=== PATIENT | female | born 1950 | race Caucasian/White ===

== ENCOUNTER → 2018-09-26 | Outpatient (CLI) | payer MEDICARE, OTHER ==
[~2018-09-26] MED LIST: AMIT10 PO; AMLO5 PO; ASPI81CH PO; ATEN50 PO; CLIN300 PO; DONE5 PO; ESTR2 PO; GABA100 PO; HYDCHL25 PO; MORP15ER PO; Norco 10-325 T1 EACH PO; Omeprazole20 M1 PO; TIZANIDINE HCL4 MG PO
[2018-09-26 15:43] LABS: Adenovirus F 40/41 Not Detected (NOT DETECT); Astrovirus Not Detected (NOT DETECT); Campylobacter Sp Not Detected (NOT DETECT); Cryptosporidium Not Detected (NOT DETECT); Cyclospora Cayetanensis Not Detected (NOT DETECT); E. Coli O157 Not Detected (NOT DETECT); Entamoeba Histolytica Not Detected (NOT DETECT); Enteroaggregative E. coli-EAEC Not Detected (NOT DETECT); Enteropathogenic E. coli-EPEC Not Detected (NOT DETECT); Enterotoxigenic E. coli-ETEC Not Detected (NOT DETECT); Giardia Lamblia Not Detected (NOT DETECT); Norovirus GI/GII Not Detected (NOT DETECT); Plesiomonas Shigelloides Not Detected (NOT DETECT); Rotavirus A Not Detected (NOT DETECT); Salmonella Sp Not Detected (NOT DETECT); Sapovirus Not Detected (NOT DETECT); Shiga Toxin-prod E. coli-STEC Not Detected (NOT DETECT); Shigella/Enteroin E. coli-EIEC Not Detected (NOT DETECT); Vibrio Cholerae Not Detected (NOT DETECT); Vibrio Sp Not Detected (NOT DETECT); Yersinia Enterocolitica Not Detected (NOT DETECT)
== END | disposition home or self-care (01) ==
LOC: LAB 15:42 → LAB SHORT 15:42 → LAB FUT 09-20 16:05
PROVIDERS: Internal Medicine Gastroenterology
DX: R19.7 Diarrhea, unspecified (principal)
CPT/HCPCS: 87507

== ENCOUNTER 2018-10-23 13:42 | Day surgery (SDC) | payer MEDICARE, OTHER ==
[~2018-10-23] VITALS: Ht 147.3 cm; Wt 109.7 kg
--- NOTE | 2018-10-23 14:20 | NUR ---
10/23/18 1420 Lencho Green 1 IV ATTEMPT RIGHT HAND, VEIN BLEW. PT TOW.
--- NOTE | 2018-10-23 14:46 | NUR ---
10/23/18 1446 Lencho Green INJECTED MYLICON INTO THE BX PORT FOR IRRIGATION PER DR IRBY REQUEST.
== END 2018-10-23 15:34 | disposition home or self-care (01) ==
LOC: ORSCSDS 13:42 → ORSCMMR 10-24 12:00 → ORD 10-24 12:00 → ORSCSDS 10-24 12:00
PROVIDERS: Internal Medicine Gastroenterology
PROC: 0DBE8ZX Excision of Large Intestine, Via Natural or Artificial Opening Endoscopic, Diagnostic (ICD-10-PCS; principal; 2018-10-23 15:15)
PROC: 0DBM8ZX Excision of Descending Colon, Via Natural or Artificial Opening Endoscopic, Diagnostic (ICD-10-PCS; principal; 2018-10-23 15:15)
DX: R19.7 Diarrhea, unspecified (principal); K63.5 Polyp of colon; K57.30 Diverticulosis of large intestine without perforation or abscess without bleeding; I10 Essential (primary) hypertension; Z87.891 Personal history of nicotine dependence; Z79.899 Other long term (current) drug therapy; Z79.82 Long term (current) use of aspirin; E66.01 Morbid (severe) obesity due to excess calories; Z68.43 Body mass index [BMI] 50.0-59.9, adult
CPT/HCPCS: 88305; J7120

== ENCOUNTER → 2020-07-24 | Outpatient (CLI) | payer MEDICARE, OTHER ==
[2020-07-24 09:17] LABS: Source, Urine Clean Catch
[2020-07-24 09:36] LABS: Appearance, Urine Hazy (Clear); Bilirubin, Urine Neg (Neg); Blood, Urine Neg (Neg); Color, Urine Yellow (P-Yellow); Glucose Qualitative, Urine Neg (Neg); Ketones, Urine Neg (Neg); Leukocyte Esterase, Urine Neg (Neg); Nitrite, Urine Pos (Neg); Protein, Urine Neg (Neg); Specific Gravity, Urine 1.025 (1.003-1.022); Urobilinogen, Urine NORM (Normal)
[2020-07-24 10:00] LABS: Bacteria Many /hpf; Calcium Oxalate Crystals Few /hpf; Red Blood Cells, Urine 0-2 /hpf (0-2); Squamous Epithelial Cells Mod /hpf (Few)
== END ==
LOC: LAB SHORT 07-23 08:17 → LAB 07-23 08:17
PROVIDERS: Family Medicine
DX: D72.9 Disorder of white blood cells, unspecified (principal)
CPT/HCPCS: 81001; 87077; 87086; 87186

== ENCOUNTER 2023-10-24 15:23 | Observation (INO) | payer MEDICARE, OTHER ==
[~2023-10-24] VITALS: Ht 154.9 cm; Wt 65.8 kg
[~2023-10-24 15:23] MED LIST changes: +HYDCHL12.5 PO; -HYDCHL25 PO; +OMEP20ER PO; -Omeprazole20 M1 PO
[2023-10-24 16:09] LABS: Source, Urine Straight Cath
[2023-10-24 16:11] LABS: Appearance, Urine Hazy (Clear); Bilirubin, Urine Neg (Neg); Blood, Urine 1+ (Neg); Color, Urine Yellow (P-Yellow); Glucose Qualitative, Urine Neg (Neg); Ketones, Urine Neg (Neg); Leukocyte Esterase, Urine 1+ (Neg); Nitrite, Urine Pos (Neg); Protein, Urine 1+ (Neg); Specific Gravity, Urine 1.025 (1.003-1.022); Urobilinogen, Urine NORM (Normal)
[2023-10-24 16:20] LABS: Bacteria Many /hpf; Calcium Oxalate Crystals Rare /hpf; Squamous Epithelial Cells Few /hpf (Few)
[2023-10-24 16:38] LABS: Albumin, Blood 3.7 g/dL (3.4-5.0); Albumin/Globulin Ratio 1.1 (0.8-1.8); Bilirubin, Total 0.5 mg/dL (0.1-1.0); Bun/Creatinine Ratio 47.5 (12.0-20.0); Calcium, Blood 10.3 mg/dL (8.5-10.1); Creatinine, Blood 0.65 mg/dL (0.40-1.00); Globulin, Blood 3.5 g/dL (2.2-4.0); Potassium, Blood 3.6 mmol/L (3.5-5.5); Thyroid Stimulating Hormone 1.51 uIU/mL (0.360-4.800); Total Protein, Blood 7.2 g/dL (6.4-8.2)
[2023-10-24] MEDS ORDERED: METO50 PO (16:39)
[2023-10-24] MEDS ORDERED: POTA8 PO (16:40)
[2023-10-24] MEDS ORDERED: Acetaminophen650 M1 PO (16:40)
[2023-10-24] MEDS ORDERED: FEROSUL325 M1 PO (16:45)
[2023-10-24 16:48] LABS: Influenza A, PCR NEGATIVE (NEGATIVE); Influenza B, PCR NEGATIVE (NEGATIVE); Resp Syncytial Virus, PCR NEGATIVE (NEGATIVE); SARS-Cov-2 (COVID-19) PCR, MMC NEGATIVE (NEGATIVE)
[2023-10-24 17:48] LABS: BASOPHILS ABSOLUTE AUTO 0.04 K/mm3 (0.00-0.23); BASOPHILS PERCENT AUTO 0 % (0-2); EOSINOPHILS ABSOLUTE AUTO 0.07 K/mm3 (0.00-0.68); EOSINOPHILS PERCENT AUTO 1 % (0-6); Hematocrit 38.2 % (33.0-51.0); Hemoglobin 13.3 g/dL (11.5-16.0); IMMATURE GRAN ABSOLUTE AUTO 0.07 K/mm3 (0.00-0.10); IMMATURE GRAN PERCENT AUTO 1 % (0-1); LYMPHOCYTES ABSOLUTE AUTO 1.28 K/mm3 (0.84-5.20); LYMPHOCYTES PERCENT AUTO 11 % (21-46); MONOCYTES ABSOLUTE AUTO 0.75 K/mm3 (0.16-1.47); MONOCYTES PERCENT AUTO 6 % (4-13); Mean Corpuscular HGB 31.3 pg (26.0-34.0); Mean Corpuscular HGB Conc 34.8 g/dL (31.5-36.5); Mean Corpuscular Volume 90 fL (80-100); Mean Platelet Volume 11.8 fL (9.1-12.4); NEUTROPHILS ABSOLUTE AUTO 9.96 K/mm3 (1.96-9.15); NEUTROPHILS PERCENT AUTO 82 % (41-73); Platelet Count 258 K/mm3 (150-400); RDW Coefficient Variation 12.4 % (11.7-14.2); RDW Standard Deviation 40.6 fL (35.1-46.3); Red Blood Cell Count 4.25 M/mm3 (3.80-5.20); White Blood Cell Count 12.17 K/mm3 (4.00-11.30)
[2023-10-24] MEDS ORDERED: ROWEEPRA XR500 MG PO (18:10)
--- NOTE | 2023-10-24 23:16 | NUR ---
CALLED ER TO GET REPORT, RN IS ON BREAK, STAFF ON PHONE ASKED IF RN COULD CALL ME BACK IN ABOUT 10 MIN, I LET HER KNOW WE ARE OK WITH THAT PLAN.
[2023-10-24 23:55] VITALS: BP 143/113
--- NOTE | 2023-10-25 01:21 | NUR ---
10/24/23 2351 PT ARRIVED TO ROOM FROM ER VIA GURNEY IN STABLE CONDITION. PT'S IV WAS OUT BUT STILL TAPED TO ARM. PT HAS A FEW BRUISES ON UE'S R/T IV STARTS AND LAB DRAWS. REMOVED PT'S IV THE REST OF THE WAY, WILL GET A NEW ONE STARTED. PT IS NOT GRIMACING,GAURDING OR MOANING. DOES NOT APPEAR TO BE IN PAIN OR DISCOMFORT. SHE IS MAKING A NOISE THAT SOUNDS LIKE HUMMING. WHEN ASKED IF SHE WAS SINGING SHE STOPPED AND LOOKED AT ME AND WAS SILENT FOR A FEW MINUTES AND THEN RESUMED HUMMING. SPOKE WITH DAUGHTER IN LAW AND SON ON THE PHONE TO ANSWER SOME OF THE ADMISSION QUESTIONS AND ANSWER ANY QUESTIONS THEY MIGHT HAVE. THEY PLAN TO COME IN TO SEE HER IN THE MORNING. NO OTHER APPARENT SIGNS OF DISTRESS. CALL LIGHT IS IN REACH. BED ALARM IS ON.
[2023-10-25 04:02] VITALS: BP 148/70
--- NOTE | 2023-10-25 05:00 | NUR ---
0200 PT LYING IN BED, EYES CLOSED, APPEARS TO BE RESTING. BREATHING IS EVEN, UNLABORED. NO APPARENT SIGNS OF DISTRESS. CALL LIGHT IS IN REACH. BED ALARM IS ON.
--- NOTE | 2023-10-25 05:57 | NUR ---
0400 PT LYING IN BED, EYES CLOSED, APPEARS TO BE RESTING. BREATHING IS EVEN, UNLABORED. NO APPARENT SIGNS OF DISTRESS. CALL LIGHT IS IN REACH. FAMILY IN ROOM.
--- NOTE | 2023-10-25 06:20 | NUR ---
PT IS ALERT BUT NONVERBAL, HX OF DEMENTIA BUT UNABLE TO FULLY ASSESS. NO GRIMACING, GAURDING, OR MOANING. NO APPARENT SIGNS OF DISTRESS. SHE DOES HUMM. WHEN ASKED IF SHE WAS SINGING SHE STOPPED HUMMING AND LOOKED AT ME FOR A FEW MINUTES AND THEN STARTED HUMMING AGAIN.
--- NOTE | 2023-10-25 06:22 | NUR ---
PT LYING IN BED, EYES CLOSED, APPEARS TO BE RESTING. BREATHING IS EVEN, UNLABORED. NO APPARENT SIGNS OF DISTRESS. CALL LIGHT IS IN REACH. BED ALARM IS ON. NO OTHER CHANGES THIS SHIFT.
--- NOTE | 2023-10-25 17:54 | NUR ---
DAYSHIFT SUMMARY Patient sleeping most of the day, not arousing to voice, this afternoon she woke up. Resting in bed, but unable to communicate needs. Family at bedside, discussed plan of care, family decided to change patient to comfort care status. Son at bedside & able to redirect patient. Bed alarm activated & audible. Will continue plan of care, awaiting discharge planning.
--- NOTE | 2023-10-26 03:59 | NUR ---
KARTHIK JEFFERSON, PT RESTING IN BED, ATTEMPTED TO GIVNE PT HER HS MEDS BUT PT SPIT OUT MEDS AND THEN REFUSED TO OPEN MOUTH AGAIN. PT NON VERABL, MAKES SOUNDS BUT DID NOT GLENDY TO BE ABLE TO ANSWER QUESTIONS. BED ALRM OM CALL LIGHT IN REACH.
[2023-10-26] MEDS ORDERED: LEVE500 PO (11:12)
--- NOTE | 2023-10-26 12:14 | NUR ---
DC- PT DC AT 1200 VIA TRANSPORT. ALL PAPERWORK AND PT'S BELONGINGS GIVEN TO AMBULANCE. PT'S DIL AWARE OF PT DC AT 1200.
== END 2023-10-26 12:06 | disposition hospice, home (50) ==
LOC: ER 15:23 → MEDS 15:24 → ENPENDDIS 10-26 10:40 → MEDS 10-26 12:06
PROVIDERS: Emergency Medicine; ADMIT Internal Medicine
DX: I62.01 Nontraumatic acute subdural hemorrhage (principal); N39.0 Urinary tract infection, site not specified; G40.409 Other generalized epilepsy and epileptic syndromes, not intractable, without status epilepticus; E86.0 Dehydration; I10 Essential (primary) hypertension; K21.9 Gastro-esophageal reflux disease without esophagitis; D50.9 Iron deficiency anemia, unspecified; Z66 Do not resuscitate; Z87.891 Personal history of nicotine dependence; Z88.0 Allergy status to penicillin; Z88.1 Allergy status to other antibiotic agents; Z88.6 Allergy status to analgesic agent; Z79.82 Long term (current) use of aspirin; Z79.899 Other long term (current) drug therapy; Z20.822 Contact with and (suspected) exposure to COVID-19
CPT/HCPCS: 0241U; 36415; 51701; 70450; 71045; 80053; 81001; 84443; 85025; 87077; 87086; 87186; 93005; 93010; 96361-59; 96365-59; 96375-59; 99285-25; A9270; G0378; J1953; J1956; J2270; J2405; J7120

== ENCOUNTER 2023-11-01 12:06 | Emergency (ER) | payer MEDICARE, OTHER ==
[~2023-11-01] VITALS: Ht 157.5 cm; Wt 68.0 kg
[~2023-11-01 12:06] MED LIST changes: +Acetaminophen650 M1 PO; +FEROSUL325 M1 PO; +LEVE500 PO; +METO50 PO; +POTA8 PO; +ROWEEPRA XR500 MG PO
[2023-11-01] MEDS ORDERED: Morphine Sulfate 20 MG/1ML 1 ML Oral Syringe SL ONE (13:40)
[2023-11-01 15:00] VITALS: BP 146/90
== END 2023-11-01 15:30 | disposition home or self-care (01) ==
LOC: ER 12:06
DX: M25.511 Pain in right shoulder (principal); F03.90 Unspecified dementia, unspecified severity, without behavioral disturbance, psychotic disturbance, mood disturbance, and anxiety; I10 Essential (primary) hypertension; Z79.899 Other long term (current) drug therapy; Z88.6 Allergy status to analgesic agent; Z88.1 Allergy status to other antibiotic agents; Z88.0 Allergy status to penicillin; Z91.013 Allergy to seafood; Z91.018 Allergy to other foods
CPT/HCPCS: 73030; 99283-25; A9270